=== PATIENT | male | born 1985 | race Caucasian/White ===

== ENCOUNTER 2016-07-28 12:24 | Emergency (ER) | payer SELFPAY ==
[2016-07-28 12:44] VITALS: BP 154/100
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
== END 2016-07-28 13:11 | disposition home or self-care (01) ==
LOC: UCCORT 12:24
DX: S16.1XXA Strain of muscle, fascia and tendon at neck level, initial encounter (principal); V43.52XA Car driver injured in collision with other type car in traffic accident, initial encounter; Y93.89 Activity, other specified; Y92.410 Unspecified street and highway as the place of occurrence of the external cause; Z88.1 Allergy status to other antibiotic agents; F17.210 Nicotine dependence, cigarettes, uncomplicated
CPT/HCPCS: 99212; G0463

== ENCOUNTER 2016-10-24 19:43 | Emergency (ER) | payer OTHER ==
[2016-10-24 20:06] VITALS: BP 156/90
[2016-10-24] MEDS ORDERED: Ketorolac INJ* 60 MG/2 ML VIAL IM ONE (20:29)
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
[2016-10-24] MEDS ORDERED: Lidocaine 1% MPF* 2 ML VIAL INJ ONE (20:37)
[2016-10-24] MEDS ORDERED: Triamcinolone Acetonide* 40 MG/ML 1 ML VIAL INTRAARTIC ONE (20:37)
[2016-10-24] MEDS ORDERED: Lidocaine 1% MPF* 2 ML VIAL ONE (20:54)
== END 2016-10-24 21:13 | disposition home or self-care (01) ==
LOC: UCCORT 19:43
DX: M46.1 Sacroiliitis, not elsewhere classified (principal); F17.210 Nicotine dependence, cigarettes, uncomplicated; Z71.6 Tobacco abuse counseling
CPT/HCPCS: 96372; 99212; G0463; J1885; J3301

== ENCOUNTER 2017-12-10 12:08 | Emergency (ER) | payer OTHER ==
[2017-12-10 14:25] VITALS: BP 136/91
[2017-12-10] MEDS ORDERED: cefTRIAXone VIAL(*) 1,000 MG VIAL IM ONE (14:59)
[2017-12-10] MEDS ORDERED: Sulfamethox/Trimethoprim DS 800/160* TAB PO ONE (14:59)
[2017-12-10] MEDS ORDERED: Lidocaine 1% MPF* 2 ML VIAL INJ ONE (14:59)
--- NOTE | 2017-12-10 15:03 | UC ---
Skin Complaint HPI - HPI Summary HPI Summary: 32 yo WM p/w left inner thigh abscess x 1 week, now red, tender and seems to be "spreading" distally. Also c/o sinus pains after a URI for more than 1 week. - History of Current Complaint Chief Complaint: UCGeneralIllness Time Seen by Provider: 12/10/17 14:50 Stated Complaint: SINUS COMPLAINT, SKIN COMPLAINT Hx Obtained From: Patient Onset/Duration: Lasting Days Skin Exposure Onset/Duration: Days Ago Onset Severity: Moderate Current Severity: Moderate Pain Intensity: 4 Location: Other - LEFT INNER THIGH Aggravating Factor(s): Touch Alleviating Factor(s): Nothing Associated Signs & Symptoms: Positive: Tenderness - Allergy/Home Medications Allergies/Adverse Reactions: Allergies Allergy/AdvReac Type Severity Reaction Status Date / Time amoxicillin Allergy Rash Verified 12/10/17 14:21 Review of Systems Constitutional: Negative Skin: Other - abscess in inner thigh Eyes: Negative ENT: Sinus Pain/Tenderness Respiratory: Negative Cardiovascular: Negative Gastrointestinal: Negative Genitourinary: Negative Motor: Negative Neurovascular: Negative Musculoskeletal: Negative Neurological: Negative Psychological: Negative All Other Systems Reviewed And Are Negative: Yes PMH/Surg Hx/FS Hx/Imm Hx Previously Healthy: Yes - Surgical History Surgical History: Yes Surgery Procedure, Year, and Place: HERNIA REPAIRS: umbilical 2005, inguinal as infant; b/l TUBES EARS AND ADDITION SURGERIES INCLUDING BENIGN TUMOR REMOVAL, TONSILECTOMY; - Family History Known Family History: Negative: Diabetes - Social History Alcohol Use: Weekly Alcohol Amount: 2 drinks per evening Substance Use Type: None Substance Use Comment - Amount & Last Used: 2 Energy drinks Smoking Status (MU): Heavy Every Day Tobacco Smoker Type: Cigarettes Amount Used/How Often: 1 ppd Length of Time of Smoking/Using Tobacco: since age 18 Have You Smoked in the Last Year: Yes Physical Exam - Summary Physical Exam Summary: Vital Signs Reviewed: Yes Appearance: Positive: Well-Appearing Skin: Positive:LEFT INNER THIGH CELLULITIS 5X4CM AND SMALL AREA OF FLUCTUANCE IN THE CENTER SIZE ABOUT 2X2CM Head/Face: Positive: Normal Head/Face Inspection Eyes: Positive: Normal, EOMI, GLENN ENT: Positive: B/L maxillary sinus tenderness Neck: Positive: Supple Respiratory/Lung Sounds: Positive: Clear to Auscultation Cardiovascular: Positive: Normal, RRR, S1, S2 Abdomen Description: Positive: Nontender, Soft Musculoskeletal: Positive: Normal Neurological: Positive: CN Intact II-XII Psychiatric: Positive: Normal Triage Information Reviewed: Yes Vital Signs: Initial Vital Signs Temp 36.5 C 12/10/17 14:20 Pulse 87 12/10/17 14:20 Resp 16 12/10/17 14:20 BP 136/91 12/10/17 14:20 Pulse Ox 100 12/10/17 14:20 Course/Dx - Course Course Of Treatment: pt declined I&D or FNA today, pt advised to take Bactrim as directed and follow up in 2 days if sx worsen - Differential Diagnoses - Skin Complaint Differential Diagnoses: Abscess, Lymphangitis, Other - Diagnoses Provider Diagnoses: Left upper thigh abscess. sinusitis Discharge - Sign-Out/Discharge Documenting (check all that apply): Patient Departure All imaging exams completed and their final reports reviewed: No Studies - Discharge Plan Condition: Stable Disposition: HOME Prescriptions: Sulfamethox/Trimethoprim DS* [Bactrim DS 800/160 TAB*] 1 tab PO BID 10 Days #20 tab Patient Education Materials: Sinusitis (ED), Abscess (ED) Referrals: No Primary Care Phys,NOPCP [Primary Care Provider] - Additional Instructions: return to urgent care if skin infection worsens in 2 days in spite of abx - Billing Disposition and Condition Condition: STABLE Disposition: Home
== END 2017-12-10 15:51 | disposition home or self-care (01) ==
LOC: UCCORT 12:08
DX: L02.416 Cutaneous abscess of left lower limb (principal); J32.9 Chronic sinusitis, unspecified; F17.210 Nicotine dependence, cigarettes, uncomplicated; Z88.0 Allergy status to penicillin
CPT/HCPCS: 96372; 99212; A9270-GY; G0463; J0696

== ENCOUNTER 2018-12-01 14:50 | Emergency (ER) | payer SELFPAY ==
[2018-12-01 15:07] VITALS: BP 157/86
--- NOTE | 2018-12-01 15:26 | UC ---
Throat Pain/Nasal Nehemias HPI - HPI Summary HPI Summary: 33-year-old male comes in with upper respiratory tract infection symptoms for about one week. He's had rhinorrhea sinus pressure or sore throat and fatigue. Ibuprofen helps some with the symptoms. It hurts when he swallows. No complaint of of any shortness of breath. - History of Current Complaint Chief Complaint: UCGeneralIllness Stated Complaint: ST Time Seen by Provider: 12/01/18 15:01 Pain Intensity: 3 - Allergies/Home Medications Allergies/Adverse Reactions: Allergies Allergy/AdvReac Type Severity Reaction Status Date / Time amoxicillin Allergy Rash Verified 12/01/18 15:07 PMH/Surg Hx/FS Hx/Imm Hx Previously Healthy: Yes - Surgical History Surgical History: Yes Surgery Procedure, Year, and Place: HERNIA REPAIRS: umbilical 2005, inguinal as infant; b/l TUBES EARS AND ADDITION SURGERIES INCLUDING BENIGN TUMOR REMOVAL, TONSILECTOMY; - Family History Known Family History: Negative: Diabetes - Social History Alcohol Use: Occasionally Alcohol Amount: 2 drinks per evening Substance Use Type: None Substance Use Comment - Amount & Last Used: 1-2 Energy drinks daily Smoking Status (MU): Heavy Every Day Tobacco Smoker Type: Cigarettes Amount Used/How Often: 1 ppd Length of Time of Smoking/Using Tobacco: since age 18 Have You Smoked in the Last Year: Yes Review of Systems All Other Systems Reviewed And Are Negative: Yes Constitutional: Positive: Fatigue Skin: Positive: Negative Eyes: Positive: Negative ENT: Positive: Sore Throat, Ear Ache, Nasal Discharge, Sinus Congestion, Sinus Pain/Tenderness Respiratory: Positive: Negative Cardiovascular: Positive: Negative Gastrointestinal: Positive: Negative Motor: Positive: Negative Neurovascular: Positive: Negative Musculoskeletal: Positive: Negative Neurological: Positive: Negative Psychological: Positive: Negative Is Patient Immunocompromised?: No Physical Exam Triage Information Reviewed: Yes Appearance: No Pain Distress, Well-Nourished, Ill-Appearing - MILD Vital Signs: Initial Vital Signs Temp 98.1 F 12/01/18 15:03 Pulse 74 12/01/18 15:03 Resp 16 12/01/18 15:03 BP 157/86 12/01/18 15:03 Pulse Ox 99 12/01/18 15:03 Vital Signs Reviewed: Yes Eye Exam: Normal Eyes: Positive: Conjunctiva Clear ENT: Positive: Pharyngeal erythema, Nasal congestion, Nasal drainage, Uvula midline, Other - No peritonsillar abscess on examination.. Negative: Muffled voice, Hoarse voice Neck: Positive: Supple Respiratory: Positive: Lungs clear, Normal breath sounds, No respiratory distress Cardiovascular: Positive: RRR Musculoskeletal: Positive: Strength Intact, ROM Intact Neurological: Positive: Alert, Muscle Tone Normal Psychological: Positive: Age Appropriate Behavior Skin Exam: Normal Throat Pain/Nasal Course/Dx - Course Course Of Treatment: DISCUSSED VIRAL VERSES BACTERIAL INFECTIONS AND THE ROLE OF ANTIBIOTICS. THE PATIENT PREFERS TO BE ON ANTIBIOTICS AT THIS TIME. - Differential Dx/Diagnosis Provider Diagnosis: Pharyngitis, Upper respiratory infection Discharge ED - Sign-Out/Discharge Documenting (check all that apply): Patient Departure All imaging exams completed and their final reports reviewed: No Studies - Discharge Plan Condition: Stable Disposition: HOME Prescriptions: DOXYcycline CAP(*) [DOXYcycline 100MG CAP(*)] 100 mg PO BID #20 cap Patient Education Materials: Pharyngitis (ED), Upper Respiratory Infection (ED) Forms: *School Release Referrals: [facility] [Outside] Additional Instructions: FOLLOW UP WITH YOUR DOCTOR IF NOT COMPLETELY IMPROVED. GET REEVALUATED SOONER IF NOT IMPROVING OR YOUR CONDITION WORSENS OR ANY QUESTIONS OR CONCERNS. - Billing Disposition and Condition Condition: STABLE Disposition: Home
== END 2018-12-01 15:34 | disposition home or self-care (01) ==
LOC: UCCORT 14:50
DX: J02.9 Acute pharyngitis, unspecified (principal); H92.09 Otalgia, unspecified ear; F17.210 Nicotine dependence, cigarettes, uncomplicated; Z88.0 Allergy status to penicillin
CPT/HCPCS: 87651; 99212; G0463